=== PATIENT | female | born 1995 | race African-American/Black ===

== ENCOUNTER 2016-10-13 16:35 | Emergency (ER) | payer MEDICAID ==
[2016-10-13] MEDS ORDERED: HYDROCODONE/ACETAMINOPHEN 5-325 MG 6 TAB/DSPK PO PRN (16:41)
--- NOTE | 2016-10-13 16:41 | ER Document Report ---
ED Extremity Problem, Lower - General Stated Complaint: FOOT INJURY Time Seen by Provider: 10/13/16 16:36 Mode of Arrival: Medic Information source: Patient Notes: Patient states she was playing on the bed with another friend when her left lateral foot hit the nightstand. She denies pain or trauma to any other location. - HPI Patient complains to provider of: Pain Location: Foot Occurred: Just prior to arrival Where: Home Onset/Duration: Sudden Quality of pain: Achy Severity: Mild Pain Level: 2 Context: Barefoot Recent injury: Yes Exacerbated by: Movement Relieved by: Nothing Past Medical History - General Information source: Patient - Social History Smoking Status: Unknown if Ever Smoked Cigarette use (# per day): No Chew tobacco use (# tins/day): No Smoking Education Provided: No Frequency of alcohol use: None Drug Abuse: None Family History: Reviewed & Not Pertinent Physical Exam - Vital signs Notes: Reviewed vital signs and nursing note as charted by RN. CONSTITUTIONAL: Alert and oriented and responds appropriately to questions. Well -appearing; well-nourished HEAD: Normocephalic; atraumatic EXT: Normal ROM in all joints; mild TTP of the left lateral foot. N/V intact distally. Good pulses, cap refill, and sensation. Pt is able to move all her toes. No plantar ecchymosis Discharge - Discharge Clinical Impression: Contusion of foot, left Qualifiers: Encounter type: initial encounter Qualified Code(s): S90.32XA - Contusion of left foot, initial encounter Condition: Good Disposition: HOME, SELF-CARE Additional Instructions: Come back immediately for any increased pain, swelling, weakness or numbness, discoloration, or any other acute problems. Please follow-up with orthopedics as we have discussed. Referrals: DIMPLE GUILLERMO MD [ACTIVE STAFF] - Follow up as needed
--- NOTE | 2016-10-13 17:07 | RADIOLOGY REPORT (SQ) ---
EXAM DESCRIPTION: FOOT LEFT COMPLETE COMPLETED DATE/TIME: 10/13/2016 4:59 pm REASON FOR STUDY: 12, foot pain - lateral COMPARISON: None. NUMBER OF VIEWS: Three views left foot. LIMITATIONS: None. FINDINGS: There is no acute or significant bone, joint or soft tissue abnormality. OTHER: No other significant finding. IMPRESSION: NORMAL STUDY. TECHNICAL DOCUMENTATION: JOB ID: [id number]
== END 2016-10-13 17:30 | disposition home or self-care (01) ==
LOC: ER 16:35
DX: S90.32XA Contusion of left foot, initial encounter (principal); W22.09XA Striking against other stationary object, initial encounter; Y92.009 Unspecified place in unspecified non-institutional (private) residence as the place of occurrence of the external cause
CPT/HCPCS: 99283